=== PATIENT | male | born 1950 | race Caucasian/White ===

== ENCOUNTER 2020-10-25 09:54 | Day surgery (SDC) | payer OTHER, MEDICARE ==
[~2020-10-25 09:54] MED LIST: Midazolam 1 MG/ML 2 ML SDV ONE; Propofol 200 MG/20 ML SDV ONE; fentaNYL 100 MCG/2 ML SDV ONE
[2020-10-25] MEDS ORDERED: Sodium Chloride 0.9% 10 ML SDV IV ONE (11:00)
[2020-10-25] MEDS ORDERED: Sodium Chloride 0.9% 1,000 ML IV SCH (11:00)
--- NOTE | 2020-10-26 10:36 | OR ---
DATE OF PROCEDURE: SURGEON: Jose Elias Hilliard MD PROCEDURE: Colonoscopy. FINDINGS: Normal colonoscopy. COMPLICATIONS: None. FIRST CRUSHER: None. ANESTHESIA: MAC. PREOPERATIVE DIAGNOSIS: Screening colonoscopy. POSTOPERATIVE DIAGNOSIS: Screening colonoscopy. RISKS: Risks, benefits, alternatives, and limitations including, but not limited to infection, bleeding, perforation, false positives and false negatives were explained to the patient and he wished to proceed. PROCEDURE IN DETAIL: The patient was placed in left lateral decubitus position. Digital rectal exam was performed without abnormality. Scope was introduced and advanced atraumatically to the ileocecal valve. Scope was brought back to the ascending, transverse, descending colon, and retroflexed. No evidence of old or new blood. No masses. No polyps. No abnormalities on retroflexion. Greater than 8 minutes was spent removing the scope. Prep was acceptable, approximately 95% of the luminal surface could be seen. The patient tolerated the procedure well. Jose Elias Hilliard MD /[id number]
== END 2020-10-25 12:57 | disposition home or self-care (01) ==
LOC: JP.SDS 09:54
PROVIDERS: ATTEND Surgery
DX: Z12.11 Encounter for screening for malignant neoplasm of colon (principal); E78.00 Pure hypercholesterolemia, unspecified
CPT/HCPCS: G0121; J2250; J2704; J3010; J7030